=== PATIENT | female | born 1990 | race Caucasian/White ===

== ENCOUNTER 2024-09-10 00:26 | Emergency (ER) | payer OTHER ==
[2024-09-10 00:43] VITALS: TEMP 98.1
[2024-09-10] MEDS: KETOROLAC 15 MG/ML 1 ML VIAL IVP STA (01:20)
[2024-09-10] MEDS: HYDROmorphone 1 MG/ML 1 ML SYRINGE IVP STA (01:23)
--- NOTE | 2024-09-10 01:48 | ED ---
Upper Extremity HPI - General Chief Complaint: Extremity Injury, Upper Stated Complaint: R Arm Injury Time Seen by Provider: 09/10/24 00:38 Source: patient, EMS, RN notes reviewed Mode of arrival: EMS Limitations: no limitations - History of Present Illness Initial Comments: This is a 33-year-old female who presents to the emergency department for right arm pain. Patient states that she slipped on a rock and fell, landing on her right side. When she landed she injured her right shoulder and states that she has since been unable to move her arm. Denies hitting her head or sustaining any other injuries. MD Complaint: Injury to:: right, shoulder - Related Data Previous Rx's Medication Instructions Recorded HYDROcodone/APAP 5-325MG [[place] 1 tab PO Q6HR PRN 3 Days #12 tab 09/10/24 5-325] Ibuprofen 800 mg PO Q8H PRN #30 tab 09/10/24 Allergies Allergy/AdvReac Type Severity Reaction Status Date / Time amoxicillin Allergy Unknown Verified 09/10/24 00:44 Childhood azithromycin Allergy Unknown Verified 09/10/24 00:44 Childhood Review of Systems ROS Statement: Those systems with pertinent positive or pertinent negative responses have been documented in the HPI. ROS Other: All systems not noted in ROS Statement are negative. Past Medical History Past Medical History: No Reported History History of Any Multi-Drug Resistant Organisms: None Reported Past Surgical History: No Surgical Hx Reported Past Psychological History: Anxiety, Depression, Panic Disorder Smoking Status: Never smoker Past Alcohol Use History: Occasional Past Drug Use History: None Reported General Exam Limitations: no limitations General appearance: alert, in no apparent distress Head exam: Present: atraumatic, normocephalic, normal inspection Respiratory exam: Present: normal lung sounds bilaterally. Absent: respiratory distress, wheezes, rales, rhonchi, stridor Cardiovascular Exam: Present: regular rate, normal rhythm Extremities exam: Present: other (Deformity to the right shoulder. Range of motion limited by pain. 2+ radial pulses) Neurological exam: Present: alert, oriented X3, CN II-XII intact Psychiatric exam: Present: normal affect, normal mood Skin exam: Present: warm, dry, intact, normal color. Absent: rash Course Vital Signs 09/10/24 09/10/24 09/10/24 00:41 02:47 02:55 Temperature 98.1 F Pulse Rate 70 82 83 Respiratory 18 18 16 Rate Blood Pressure 127/82 93/52 104/66 O2 Sat by Pulse 98 100 96 Oximetry 09/10/24 09/10/24 09/10/24 03:00 03:15 03:30 Temperature Pulse Rate 80 85 80 Respiratory 15 16 16 Rate Blood Pressure 104/64 97/61 97/61 O2 Sat by Pulse 96 100 99 Oximetry 09/10/24 09/10/24 03:45 04:09 Temperature Pulse Rate 82 91 Respiratory 16 17 Rate Blood Pressure 100/61 94/54 O2 Sat by Pulse 99 98 Oximetry Procedures - Orthopedic Joint Reduction Joint #1 Consent Obtained: verbal consent, written consent Side: right Joint Reduction Location: shoulder Analgesia: procedural sedation Post-Reduction Neuro Exam: intact Post-Reduction Vascular Exam: intact Post Reduction X-Ray Obtained: Yes Post Reduction X-Ray Results: reduced Splint Applied: Yes Patient Tolerated Procedure: well Medical Decision Making - Medical Decision Making This is a 33-year-old female who presents to the emergency department for a right shoulder injury. Was pt. sent in by a medical professional or institution? @ -No Did you speak to anyone other than the patient for history? @ -No Did you review nursing and triage notes? @ -Yes, and I agree, it is accurate with regards to the patient's symptoms. Were old charts reviewed? @ -No Differential Diagnosis? @ -Differential Musculoskeletal Muscular strain, contusion, ligament sprain, fracture, arthritis, septic arthritis, bursitis, cellulitis, muscle spasm, nerve compression, DVT, arterial occlusion, herpes zoster, electrolyte abnormality, tumor.... This is not meant to be in all inclusive list EKG interpreted by me (3pts min.)? @ -Not obtained X-rays interpreted by me (1pt min.)? @ -X-ray of the right shoulder and humerus obtained. My interpretation identifies an anterior dislocation. Postreduction x-ray of the right shoulder obtained. My interpretation identifies successful reduction of previous dislocation. CT interpreted by me (1pt min.)? @ -CT scan of the right shoulder obtained. My interpretation identifies a fracture of the greater tuberosity. U/S interpreted by me (1pt. min.)? @ -Not obtained What testing was considered but not performed? (CT, X-rays, U/S, labs)? Why? @ -None What meds were considered but not given? Why? @ -None Did you discuss the management of the patient with other professionals? @ -Yes, Dr. Luna, orthopedics, who advised reduction followed by a CT scan of the shoulder to better evaluate the fracture fragment. Did you reconcile home meds? @ -No Was smoking cessation discussed for >3mins.? @ -No Was critical care preformed (if so, how long)? @ -No Were there social determinants of health that impacted care today? How? (Homelessness, low income, unemployed, alcoholism, drug addiction, transportation, low edu. Level, literacy, decrease access to med. care, intermediate, rehab)? @ -No Was there de-escalation of care discussed even if they declined? (Discuss DNR or withdrawal of care, Hospice)? @ -No What co-morbidities impacted this encounter? (DM, HTN, Smoking, COPD, CAD, Cancer, CVA, Hep., AIDS, mental health diagnosis, sleep apnea, morbid obesity)? @ -None Was patient admitted / discharged? @ -Discharged. X-ray of the right shoulder obtained demonstrating a shoulder dislocation, most likely anterior, with possible fracture fragments thought to be derived from the glenoid. Case discussed with orthopedics who advised that we can attempt a reduction and a CT scan should be obtained afterwards to better evaluate the fracture fragment. Conscious sedation performed using propofol with ED attending Dr. Gamble. The shoulder was reduced successfully and confirmed with postreduction x-rays. Arm sling was applied. CT scan of the right shoulder then obtained per orthopedic recommendations. This did identify a nondisplaced fracture of the greater tuberosity. Findings reviewed with the patient. Given that she is not local to this area, she was provided with a disc copy of her imaging and advised that she needs to follow-up with orthopedics when she returns home, which she advised will be in the next couple of days. Ibuprofen and [place] prescribed for pain control. Patient discharged home with her mother in stable condition. Case discussed with ED attending Dr. Gamble. Return precautions reviewed in depth, the patient is instructed to return to the emergency department with any new, worsening, or concerning symptoms. Patient verbalized understanding. Undiagnosed new problem with uncertain prognosis? @ -None Drug Therapy requiring intensive monitoring for toxicity (Heparin, Nitro, Insulin, Cardizem)? @ -None Were any procedures done? @ -Reduction of shoulder dislocation, procedural sedation Diagnosis/symptom? @ -Fall, right shoulder dislocation, greater tuberosity fracture Acute, or Chronic, or Acute on Chronic? @ -Acute Uncomplicated (without systemic symptoms) or Complicated (systemic symptoms)? @ -Uncomplicated Side effects of treatment? @ -None Exacerbation, Progression, or Severe Exacerbation] @ -Not applicable Poses a threat to life or bodily function? @ -Will limit use of the right arm for the meantime - Radiology Data Radiology results: report reviewed, image reviewed Disposition Clinical Impression: Fall, Dislocation of right shoulder joint, Fracture of greater tuberosity of right humerus Disposition: HOME SELF-CARE Condition: Stable Instructions (If sedation given, give patient instructions): Arm Fracture in Adults (ED), Shoulder Dislocation (ED), Moderate Sedation (ED), Procedural Adriana tion (ED) Additional Instructions: Return to the emergency department with any new, worsening, or concerning symptoms. Alternate with ibuprofen and Tylenol as needed for pain relief. Take the [place] sparingly when your pain is the most severe. As soon as you return home make sure you become set up with an orthopedic provider for a follow-up appointment. Let them know that you were seen in the emergency department for a shoulder dislocation and a fracture of the greater tuberosity. Prescriptions: Ibuprofen 800 mg PO Q8H PRN #30 tab PRN Reason: Pain HYDROcodone/APAP 5-325MG [[place] 5-325] 1 tab PO Q6HR PRN 3 Days #12 tab PRN Reason: Pain Is patient prescribed a controlled substance at d/c from ED?: Yes When asked, does pt state using other controlled substances?: No If prescribed controlled substance>3 days was MAPS reviewed?: Prescribed <3 Days Referrals: None,Stated [Primary Care Provider] - 1-2 days Time of Disposition: 03:57
--- NOTE | 2024-09-10 02:10 | XR ---
EXAM: XR Right Humerus, 2 or More Views CLINICAL HISTORY: ITS.[email or web address] XR Reason: Fall TECHNIQUE: Frontal and lateral views of the right humerus. COMPARISON: No relevant prior studies available. FINDINGS: Bones/joints: Glenohumeral joint dislocation. Possible fracture fragments measuring up to 2.2 cm projecting over the humerus neck. No visible humerus fracture. Soft tissues: Unremarkable. IMPRESSION: 1. Glenohumeral joint dislocation. Whether this represents anterior or posterior dislocation is not determined on the provided images. 2. Possible fracture fragments measuring up to 2.2 cm projecting over the humerus neck. These might be derived from the glenoid. CT recommended.
--- NOTE | 2024-09-10 02:11 | XR ---
EXAM: XR Right Shoulder Complete, 2 or More Views CLINICAL HISTORY: [email or web address].[email or web address] XR Reason: Fall TECHNIQUE: Two or more views of the right shoulder. COMPARISON: No relevant prior studies available. FINDINGS/IMPRESSION: Glenohumeral joint dislocation. Whether this represents anterior or posterior dislocation is not established on the provided views. Consider CT. Suspect fracture fragments measuring up to 2.1 cm projecting over the humeral neck. These might be derived from the glenoid and could be assessed on CT. Acromioclavicular joint is normally aligned.
[2024-09-10] MEDS: PROPOFOL 10 MG/ML 20 ML VIAL IV ONE (02:38)
--- NOTE | 2024-09-10 03:26 | XR ---
EXAM: XR Right Shoulder Complete, 2 or More Views CLINICAL HISTORY: [email or web address].[email or web address] XR Reason: post proced TECHNIQUE: Two or more views of the right shoulder. COMPARISON: 09/10/2024 FINDINGS: Bones/joints: Anatomic alignment status post reduction. Nondisplaced fracture of the greater tuberosity. Soft tissues: Unremarkable. IMPRESSION: 1. Anatomic alignment status post reduction. 2. Nondisplaced fracture of the greater tuberosity.
--- NOTE | 2024-09-10 03:41 | CT ---
EXAM: CT Right Upper Extremity Without Intravenous Contrast, Shoulder CLINICAL HISTORY: [email or web address].[email or web address] CT Reason: Fall TECHNIQUE: Axial computed tomography images of the right shoulder without intravenous contrast. CTDI is 25.1 mGy and DLP is 560.8 mGy-cm. This CT exam was performed using one or more of the following dose reduction techniques: automated exposure control, adjustment of the mA and/or kV according to patient size, and/or use of iterative reconstruction technique. COMPARISON: Same-day x-rays FINDINGS: Bones/joints: Anatomic alignment at the glenohumeral joint. Nondisplaced fracture of the greater tuberosity. The glenoid was intact. Normal appearance of the acromioclavicular joint. Small joint effusion. Soft tissues: Unremarkable. Lung apices: Atelectasis in the dependent portions of the right lung. IMPRESSION: 1. Nondisplaced fracture of the greater tuberosity.
[2024-09-10] MEDS: ONDANSETRON 4 MG ODT STARTER PACK TAB BTL PO STA (03:56)
[2024-09-10] MEDS: ACET/COD 300 MG/30 MG STARTER PACK TAB BTL PO STA (03:56)
[2024-09-10] MEDS: HYDROcodone/APAP 5-325MG 1 EACH TAB PO STA (03:57)
[2024-09-10 04:23] VITALS: BP 94/54; PULSE 91; RESP 17
== END 2024-09-10 04:09 | disposition home or self-care (01) ==
LOC: EC 00:26
DX: S43.004A Unspecified dislocation of right shoulder joint, initial encounter (principal); S42.251A Displaced fracture of greater tuberosity of right humerus, initial encounter for closed fracture; Z88.0 Allergy status to penicillin; Z88.1 Allergy status to other antibiotic agents; W01.0XXA Fall on same level from slipping, tripping and stumbling without subsequent striking against object, initial encounter
CPT/HCPCS: 73020; 73060; 73200; 99284; 96374; 96375; 23650; 99152; 99153; J1171; J1885; S0119; J2704